=== PATIENT | female | born 1990 | race Caucasian/White ===

== ENCOUNTER 2018-07-26 15:56 | Emergency (ER) | payer OTHER ==
[2018-07-26 16:10] VITALS: BP 112/72; PULSE 72; RESP 18; TEMP 96.5
--- NOTE | 2018-07-26 16:55 | ED ---
General Adult HPI - General Chief complaint: Needlestick/Exposure Stated complaint: Needlestick Time Seen by Provider: 07/26/18 16:16 Source: patient, RN notes reviewed Mode of arrival: ambulatory Limitations: no limitations - History of Present Illness Initial comments: 28-year-old male presented to the emergency room today with chief complaint of a needlestick injury that occurred just prior to arrival. 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 Patient states that she did clean the area. She denies any other complaints or symptoms. States injury occurred to the left index finger. - Related Data Home Medications Medication Instructions Recorded Confirmed Dextroamphetamine/Amphetamine 20 mg PO BID 07/26/18 07/26/18 [Adderall] Etonogestrel/Ethinyl Estradiol 1 ring VG SA 07/26/18 07/26/18 [Nuvaring Vaginal Ring] Multivitamins, Thera [Multivitamin 1 tab PO DAILY 07/26/18 07/26/18 (formulary)] Allergies Allergy/AdvReac Type Severity Reaction Status Date / Time No Known Allergies Allergy Unverified 07/26/18 16:08 Review of Systems ROS Statement: Those systems with pertinent positive or pertinent negative responses have been documented in the HPI. ROS Other: All systems not noted in ROS Statement are negative. Past Medical History Past Medical History: No Reported History History of Any Multi-Drug Resistant Organisms: None Reported Past Surgical History: No Surgical Hx Reported Past Psychological History: No Psychological Hx Reported Smoking Status: Never smoker Past Alcohol Use History: None Reported Past Drug Use History: None Reported General Exam - General Exam Comments Initial Comments: General: The patient is awake and alert, in no distress, and does not appear acutely ill. Eye: Extra-ocular movements are intact. There is normal conjunctiva bilaterally. No signs of icterus. Neck: The neck is supple Musculoskeletal: Normal ROM, no tenderness. Sensation intact Neurological: A&O x 3. CN II-XII intact, There are no obvious motor or sensory deficits. Coordination appears grossly intact. Speech is normal. Skin: Skin is warm and dry and no rashes or lesions are noted. Psychiatric: Cooperative, appropriate mood & affect, normal judgment. Limitations: no limitations Course Vital Signs 07/26/18 16:06 Temperature 96.5 F L Pulse Rate 72 Respiratory 18 Rate Blood Pressure 112/72 O2 Sat by Pulse 99 Oximetry Medical Decision Making - Medical Decision Making Rapid HIV testing was performed on source patient which is negative. Patient's blood has been trying in the emergency room symptoms for routine testing. At this time patient will be discharged to follow-up with employee health for further testing. Disposition Clinical Impression: Needle stick injury of finger Disposition: HOME SELF-CARE Condition: Good Instructions: Needle Stick Injuries (ED) Additional Instructions: Please continue to follow-up with employee health as discussed. Please return to emergency room for any other concerns. Is patient prescribed a controlled substance at d/c from ED?: No Referrals: Tierney Stauffer MD [Primary Care Provider] - 1-2 days Time of Disposition: 16:55
== END 2018-07-26 17:05 | disposition home or self-care (01) ==
LOC: EC 15:56
DX: S69.92XA Unspecified injury of left wrist, hand and finger(s), initial encounter (principal); Z79.899 Other long term (current) drug therapy; Z79.3 Long term (current) use of hormonal contraceptives; W46.0XXA Contact with hypodermic needle, initial encounter; Y92.234 Operating room of hospital as the place of occurrence of the external cause; Y99.0 Civilian activity done for income or pay
CPT/HCPCS: 99282